=== PATIENT | male | born 1980 | race Caucasian/White ===

== ENCOUNTER 2022-12-28 07:11 | Emergency (ER) | payer BC ==
[2022-12-28 08:32] LABS: Control Line Color Pink/Red Line (Pink/Red)
[2022-12-28 08:33] LABS: HIV-1/2 Antibodies Non Reactive (NonReactive)
[2022-12-28 13:04] LABS: HIV (1/2) Antibody/Antigen Non-Reactive (NonReactive); HIV 1/2 INDEX 0.19 S/CO (<1.00); Hep C IgG Ab Non-Reactive S/CO (NonReactive); Hep C Index 0.28 S/CO (0-0.79)
[2022-12-28 13:30] LABS: HBSAB Concentration 620.07 mIU/mL; Hep B Surf AB Reactive (NonReactive)
== END 2022-12-28 07:40 | disposition home or self-care (01) ==
LOC: MADERS 07:11
DX: Z77.21 Contact with and (suspected) exposure to potentially hazardous body fluids (principal); G43.909 Migraine, unspecified, not intractable, without status migrainosus; J45.909 Unspecified asthma, uncomplicated; F17.220 Nicotine dependence, chewing tobacco, uncomplicated
CPT/HCPCS: 36415; 86703; 99283